=== PATIENT | female | born 2000 | race Caucasian/White ===

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

== ENCOUNTER → 2020-06-26 | Outpatient (CLI) | payer OTHER | LOC: ZCOL.LAB 15:10 | DX: Z20.828 Contact with and (suspected) exposure to other viral communicable diseases (principal) ==